=== PATIENT | male | born 1965 | race Caucasian/White ===

== ENCOUNTER 2017-09-03 06:19 | Day surgery (SDC) | payer OTHER ==
[~2017-09-03] VITALS: Ht 167.6 cm; Wt 71.2 kg
[~2017-09-03 06:19] MED LIST: ACIPHEX20 MG PO; ANTIVERT PO; BACLOFEN10 MG PO; BACTRIM DS1 TAB PO; CARAFATE PO; DULCOLAX5 MG PO; FIBE1 OR; LORTAB 7.5 PO; MAALOX/BEN PO; MOTRIN600 MG OR; NAPROSYN500 MG PO; NEXIUM40 M1 PO; NO; PAROXETINE20 MG PO; PREVACID30 M2 OR; RANITIDINE150 MG OR; TAGAMENT; [UNRECOGNIZED DRUG - OTHER] PO; [UNRECOGNIZED DRUG - OTHER] PO; [UNRECOGNIZED DRUG - REMARK]
[2017-09-03] MEDS ORDERED: REGLAN10 MG PO (07:30)
[2017-09-03 07:53] VITALS: BP 109/79
== END 2017-09-03 08:01 | disposition home or self-care (01) | DRG 392 ==
LOC: ENDO 06:19 → ORM 08:15
PROVIDERS: ATTEND Surgery
PROC: 0DB48ZX Excision of Esophagogastric Junction, Via Natural or Artificial Opening Endoscopic, Diagnostic (ICD-10-PCS; principal; 2017-09-03)
PROC: 0DB78ZX Excision of Stomach, Pylorus, Via Natural or Artificial Opening Endoscopic, Diagnostic (ICD-10-PCS; 2017-09-03)
DX: K21.0 Gastro-esophageal reflux disease with esophagitis (principal); K29.50 Unspecified chronic gastritis without bleeding

== ENCOUNTER 2017-12-31 19:49 | Observation (INO) | payer OTHER ==
[~2017-12-31] VITALS: Ht 167.6 cm; Wt 70.4 kg
[~2017-12-31 19:49] MED LIST changes: +REGLAN10 MG PO
--- NOTE | 2017-12-31 20:20 | NUR ---
PT AMBULATORY TO ROOM WITH NAD. STATES FEELS A LITTLE BETTER NOW. GAIT STEADY. PWD. RESP EASY REG. VSS.
--- NOTE | 2017-12-31 21:00 | NUR ---
Pt appears in no obvious distress at this time. Ambulates without incident. No motor or neuro deficit noted.
[2017-12-31 21:41] LABS: IMMATURE GRANULOCYTES 0.5 % (0.0-5.0); MEAN CELL VOLUME 90.9 fL CALC (80.0-100.0); MEAN CORPUSCULAR HGB 31.6 pG CALC (26.0-32.0); MEAN CORPUSCULAR HGB CONC 34.8 g/L CALC (32.0-36.0); NEUT# 13.06 thou/uL (1.82-7.42); RED BLOOD COUNT 5.06 mill/uL (4.70-6.10); RED CELL DISTRI WIDTH 12.4 % (11.5-15.5)
--- NOTE | 2017-12-31 21:44 | NUR ---
IV INITIATED IN LEFT WRIST WITH 20 GAUGE. INFORMED PT OF POC AT THIS TIME. POSSIBLE ADMISSION FOR OBSERVATION AFTER CT OF BRAIN.
[2017-12-31 21:52] LABS: ALBUMIN 4.5 g/dL (3.2-5.0); ALKALINE PHOSPHATASE 62 u/l (38-126); ANION GAP 16 (6-22 (CALC)); BILIRUBIN, TOTAL 0.4 mg/dL (0.0-1.4); BUN 15 mg/dL (9-20); BUN/CREATININE RATIO 19 (12-20 (CALC)); CARBON DIOXIDE 25 mmol/l (22-30); CHLORIDE 105 mmol/l (95-108); CREATININE 0.8 mg/dL (0.7-1.3); GFR > 60 ML/MIN (>=60 (CALC)); GFR FOR AFR.AMER. > 60 ML/MIN (>=60 (CALC)); POTASSIUM 3.5 mmol/l (3.5-5.1); SGOT/AST 23 u/l (17-59); SGPT/ALT 48 u/l (21-72); SODIUM 141 mmol/l (137-146); TOTAL PROTEIN 7.4 g/dL (6.3-8.2)
[2017-12-31] MEDS ORDERED: AMLODIPINE5 MG PO (22:01)
[2017-12-31] MEDS ORDERED: ZOLOFT50 MG PO (22:03)
--- NOTE | 2017-12-31 22:04 | NUR ---
RECONCILED MEDS WIHT PT AND FAMILY MEMBER AT BEDSIDE.
[2017-12-31 22:13] LABS: URINE BILIRUBIN - DIPSTICK NEGATIVE (NEGATIVE); URINE BLOOD DIPSTICK NEGATIVE (NEGATIVE); URINE CLARITY HAZY; URINE COLOR YELLOW; URINE GLUCOSE - DIPSTICK NEGATIVE (NEGATIVE); URINE KETONE NEGATIVE (NEGATIVE); URINE LEUK ESTERASE NEGATIVE (NEGATIVE); URINE NITRITE - DIPSTICK NEGATIVE (Negative); URINE PROTEIN - DIPSTICK NEGATIVE (NEG-TRACE); URINE SPECIFIC GRAVITY 1.015; URINE UROBILINOGEN - DIPSTICK 0.2 E.U./dL (0.2)
[2017-12-31 22:15] LABS: BARBITURATES NEGATIVE (NEGATIVE); COCAINE NEGATIVE (NEGATIVE); METHADONE NEGATIVE (NEGATIVE); OXCYCODONE NEGATIVE (NEGATIVE); TETRAHYDROCANNABIONOL NEGATIVE (NEGATIVE); TRICYLIC ANTIDEPRESSANTS NEGATIVE (NEGATIVE)
[2017-12-31 22:23] LABS: TSH, 3RD GENERATION 1.87 uIU/mL (0.47 - 4.68)
[2017-12-31 22:54] LABS: INFLUENZA A NONE DETECTED (NONE DETECT); INFLUENZA B NONE DETECTED (NONE DETECT)
--- NOTE | 2017-12-31 23:15 | NUR ---
All results are back, awaiting Dr Varma to discuss options.
--- NOTE | 2018-01-01 00:40 | NUR ---
Admission Note Report Given to: Ladi VANEGAS Transported by: Wheelchair x Stretcher Transported with: x Nurse Transporter x Patent IV [id number] x Senior Auditor Tele [id number]
--- NOTE | 2018-01-01 00:55 | NUR ---
PT ARRIVED TO UNIT VIA STRETCHER WITH ER STAFF IN STABLE CONDITION; ALERT AND ORIENTED WITH AT BEDSIDE. PT DENIES PAIN CURRENTLY. RESPIRATIONS EVEN AND UNLABORED ON ROOM AIR. NEURO CHECK WNL; TELE ON. ORIENTED TO ROOM AND CALL LIGHT SYSTEM. PLAN OF CARE DISCUSSED. PT ENCOURAGE TO VERABLIZE CONCERNS. STATES UNDERSTANDING. SAFETY MEASURES IN PLACE. CALL LIGHT WITHIN REACH.
[2018-01-01 01:00] VITALS: BP 132/91
[2018-01-01 03:52] VITALS: BP 115/82
--- NOTE | 2018-01-01 04:00 | NUR ---
PT RESTING IN BED SEMI FOWLERS; AWAKE AND ALERT; STATES THAT HE HAS NOT SLEPT YET. NO ACUTE CHANGES SINCE ADMISSION; NEURO CHECK REMAINS WNL. IV SITE APPEARS HEALTHY AND FLUSHES. NO REQUESTS OR CONCERNS AT THIS TIME. SAFETY MEASURES IN PLACE. CALL LIGHT WITHIN REACH.
--- NOTE | 2018-01-01 07:00 | NUR ---
SHIFT CHANGE REPORT FROM EFFIE, PT AWAKE ALERT AND ORIENTED BUT STATES HE FEELS VERY TIRED HE HAS BEEN UP ALL NIGHT AND WANTS TO SLEEP, DENIES PAIN/DISCOMFORT, CALL LAMA IN REACH.
[2018-01-01 07:43] VITALS: BP 119/83
[2018-01-01 10:46] LABS: HEMATOCRIT 45.7 % (39.0-50.0); HEMOGLOBIN 15.5 g/dl (14.0-18.0); IMMATURE GRANULOCYTES 0.3 % (0.0-5.0); MEAN CELL VOLUME 91.2 fL CALC (80.0-100.0); MEAN CORPUSCULAR HGB 30.9 pG CALC (26.0-32.0); MEAN CORPUSCULAR HGB CONC 33.9 g/L CALC (32.0-36.0); NEUT# 4.12 thou/uL (1.82-7.42); RED BLOOD COUNT 5.01 mill/uL (4.70-6.10); RED CELL DISTRI WIDTH 12.6 % (11.5-15.5)
--- NOTE | 2018-01-01 11:01 | NUR ---
DR ANDERSON HERE ROUNDING, DISCUSSED PLAN OF CARE, SPOUSE AT BEDSIDE, CALL LAMA IN REACH.
[2018-01-01 11:09] LABS: ANION GAP 14 (6-22 (CALC)); BUN 11 mg/dL (9-20); BUN/CREATININE RATIO 13 (12-20 (CALC)); CARBON DIOXIDE 27 mmol/l (22-30); CHLORIDE 106 mmol/l (95-108); CREATININE 0.8 mg/dL (0.7-1.3); GFR > 60 ML/MIN (>=60 (CALC)); GFR FOR AFR.AMER. > 60 ML/MIN (>=60 (CALC)); POTASSIUM 4.1 mmol/l (3.5-5.1); SODIUM 142 mmol/l (137-146)
[2018-01-01 11:10] VITALS: BP 115/76
--- NOTE | 2018-01-01 13:56 | NUR ---
Discharge instructions given. Patient verbalizes understanding of same. Discharged in good condition via Ambulatory to Home with spouse. All belongings sent with pt.
== END 2018-01-01 14:00 | disposition home or self-care (01) | DRG 816 ==
LOC: ED 19:49 → ED-I 23:10 → ED 23:41 → MS2 23:42
PROVIDERS: Emergency Medicine; Internal Medicine Nephrology; ADMIT Internal Medicine; ATTEND Internal Medicine
DX: D72.823 Leukemoid reaction (principal); R42 Dizziness and giddiness; R20.0 Anesthesia of skin; F32.9 Major depressive disorder, single episode, unspecified; F41.9 Anxiety disorder, unspecified; I10 Essential (primary) hypertension; K21.9 Gastro-esophageal reflux disease without esophagitis
CPT/HCPCS: G0378

== ENCOUNTER 2024-04-26 11:03 | Emergency (ER) | payer BC ==
[~2024-04-26] VITALS: Ht 167.6 cm; Wt 75.0 kg
[~2024-04-26 11:03] MED LIST changes: +AMLODIPINE5 MG PO; +IPRATROPIU0.5 MG/3 M IN; +MEDDOSEPAK PO; +ZOLOFT50 MG PO
[2024-04-26 11:39] LABS: BASO% 0.6 % (0-3); EOS% 4.6 % (0-8); HEMATOCRIT 44.2 % (39.0-50.0); HEMOGLOBIN 14.7 g/dl (14.0-18.0); IMMATURE GRANULOCYTES 0.6 % (0.0-5.0); MEAN CELL VOLUME 93.1 fL CALC (80.0-100.0); MEAN CORPUSCULAR HGB 30.9 pG CALC (26.0-32.0); MEAN CORPUSCULAR HGB CONC 33.3 g/dL CAL (32.0-36.0); MONO% 8.4 % (2-13); NEUT# 3.72 thou/uL (1.82-7.42); NEUT% 56.8 % (42-76); RED BLOOD COUNT 4.75 mill/uL (4.70-6.10); RED CELL DISTRI WIDTH 12.5 % (11.5-15.5)
[2024-04-26 11:50] LABS: ALBUMIN 4.6 g/dL (3.2-5.0); BILIRUBIN, TOTAL 0.6 mg/dL (0.2-1.3); CREATININE 0.8 mg/dL (0.7-1.3); POTASSIUM 4.2 mmol/l (3.5-5.1); TOTAL PROTEIN 7.3 g/dL (6.3-8.2)
[2024-04-26 14:11] VITALS: BP 145/82
== END 2024-04-26 14:12 | disposition home or self-care (01) | DRG 149 ==
LOC: ED 11:03
PROVIDERS: Family Medicine
DX: R42 Dizziness and giddiness (principal); I10 Essential (primary) hypertension; I25.10 Atherosclerotic heart disease of native coronary artery without angina pectoris; E78.5 Hyperlipidemia, unspecified; K21.9 Gastro-esophageal reflux disease without esophagitis; I25.2 Old myocardial infarction; Z95.5 Presence of coronary angioplasty implant and graft